=== PATIENT | male | born 1990 | race Caucasian/White ===

== ENCOUNTER 2019-12-03 21:09 | Emergency (ER) | payer MEDICAID ==
[~2019-12-03] VITALS: Ht 167.6 cm; Wt 99.8 kg
[2019-12-03 21:34] VITALS: BP_SYST 117
--- NOTE | 2019-12-03 21:43 | NUR ---
Patient triaged and placed in waiting room. VSS and patient appears in no acute distress at this time. Accompanied by , awaiting available bed, and MD notified of need for MSE.
[2019-12-03 21:59] LABS: BASOPHILS % (AUTO) 0.6 % (0.0-2.0); EOSINOPHILS # (AUTO) 0.2 K/uL (0.0-0.4); EOSINOPHILS % (AUTO) 2.9 % (0.0-4.0); HEMATOCRIT 44.2 % (36-54); HEMOGLOBIN 15.2 g/dL (14.0-18.0); LYMPHOCYTES # (AUTO) 2.1 K/uL (1.0-5.5); LYMPHOCYTES % (AUTO) 30.4 % (20.5-51.5); MEAN CORPUSCULAR HEMOGLOBIN 32 pg (27-31); MEAN CORPUSCULAR HGB CONC 34 % (32-36); MEAN CORPUSCULAR VOLUME 92 fL (79.0-98.0); MONOCYTES # (AUTO) 0.5 K/uL (0.0-1.0); MONOCYTES % (AUTO) 7.5 % (1.7-9.3); NEUTROPHILS % (AUTO) 58.6 % (40.0-70.0); PLATELET COUNT (AUTO) 196 K/uL (130-430); RED BLOOD CELL COUNT(AUTO) 4.79 MIL/uL (4.2-6.2); RED CELL DISTRIBUTION WIDTH 13.5 % (9.0-15.0); WHITE BLOOD COUNT (AUTO) 6.9 K/uL (4.8-10.8)
[2019-12-03 23:04] LABS: ANION GAP 8 (5-15); CALCIUM 8.5 mg/dL (8.4-11.0); CHLORIDE 103 mmol/L (98-107); CREATININE 0.85 mg/dL (0.55-1.30); GLUCOSE 85 mg/dL (70-99); POTASSIUM 3.8 mmol/L (3.5-5.1); SODIUM SERUM 137 mmol/L (136-145); UREA NITROGEN, BLOOD 15 mg/dL (8-21)
[2019-12-03 23:07] LABS: GFR AFRICAN AMERICAN 139 mL/min (>90)
[2019-12-03 23:11] LABS: ALANINE AMINOTRANSFERASE 54 U/L (12-78); ALBUMIN 3.9 g/dL (3.4-4.8); ASPARTATE AMINOTRANSFERASE 26 U/L (10-37); TOTAL BILIRUBIN 0.3 mg/dL (0.0-1.0)
[2019-12-03 23:31] LABS: BILIRUBIN,DIRECT < 0.1 mg/dL (0.0-0.3)
--- NOTE | 2019-12-04 04:00 | NUR ---
Ambulatory to bed 3
--- NOTE | 2019-12-04 04:05 | NUR ---
Patient complains of rash to bilateral upper extremity for the last 3 days. Pt states that he has not changed any laundry detergents or soap. Pt is not allergic to anything. Per patient he was feeling short of breath a few days but states he is not today. Rash has spread minimally to torso. No other injuries/complaints per patient or noted.
--- NOTE | 2019-12-04 04:40 | NUR ---
ER Dr. Dumont at bedside examining patient.
--- NOTE | 2019-12-04 05:27 | NUR ---
Patient given written and verbal discharge instructions and verbalizes understanding. ER MD discussed with patient the results and treatment provided. Patient in stable condition. ID arm band removed. Rx of hydroxyzine hydrochloride given. Patient educated on pain management and to follow up with PMD. Pain Scale 0/10. Opportunity for questions provided and answered. Medication side effect fact sheet provided.
[2019-12-04 05:28] VITALS: BP_SYST 121
== END 2019-12-04 05:27 | disposition home or self-care (01) ==
LOC: SED 21:09
DX: R21 Rash and other nonspecific skin eruption (principal)
CPT/HCPCS: 36415; 80053; 82248-TC; 85025; 99283